=== PATIENT | male | born 1985 | race Caucasian/White ===

== ENCOUNTER 2023-06-03 13:04 | Outpatient (CLI) | payer BC, SELFPAY ==
--- NOTE | 2023-06-03 13:00 | MR_ITS ---
WS: [id number] MRI LUMBAR SPINE NONCONTRAST TECHNIQUE: Sagittal T1, T2 and STIR imaging. Axial T1 and T2 imaging. CLINICAL INFORMATION: M51.16 - Intervertebral disc disorders with radiculopathy... COMPARISON: None. FINDINGS: Mild lumbar curve. No acute compression. Disc protrusions L3-L4 L4-L5 and L5-S1. Prominent disc protr usions in the lower thoracic spine at T11-T12 and T12-L1 with mild central canal stenosis. Mild LEFT T11-T12 proximal foraminal narrowing. T12-L1: Central and RIGHT paracentral disc protrusion with narrowing of the RIGHT subarticular recess . Spinal canal and foramen are patent. L1-L2: Mild facet arthropathy. Spinal canal and foramen are patent. L2-L3: Mild facet arthropathy. Spinal canal and foramen are patent. L3-L4: Central and LEFT paracentral disc protrusion with mild central canal stenosis. Impingement of the traversing LEFT L4 nerve root in the subarticular recess. Mild facet arthropathy. Foramen are pat ent. L4-L5: Broad-based central disc protrusion with small annular fissure. Slight inferior extension of d isc material. Mild central canal stenosis. Impingement traversing L5 nerve roots LEFT greater than RI GHT. Mild facet arthropathy. Mild LEFT foraminal narrowing. L5-S1: Prominent RIGHT pericentral disc protrusion impinges the traversing RIGHT S1 nerve root in the subarticular recess. Mild central canal stenosis. Mild RIGHT proximal foraminal narrowing. Mild face t arthropathy. Small disc protrusions in the cervical spine on the control systems eng imaging at C4-C5 C5-C6 and C6-C7. Visualized pelvic bony structures: Normal. Paravertebral soft tissues: Normal. IMPRESSION: 1. Mild central canal stenosis L3-L4 L4-L5 and L5-S1. 2. Central and LEFT paracentral protrusion L3-4 impinges the LEFT subarticular recess and traversing LEFT L4 nerve root. 3. Broad-based central protrusion L4-5 with an annular tear impinges the traversing L5 nerve roots i n the subarticular recess. 4. Prominent RIGHT paracentral protrusion L5-S1 impinges the traversing RIGHT S1 nerve root. 5. RIGHT paracentral protrusion T12-L1 with narrowing of the RIGHT subarticular recess. 6. LEFT paracentral protrusion T11-T12 only included on the sagittal imaging with mild proximal fora delmy narrowing. 7. Mild LEFT L4-5 foraminal narrowing.
== END 2023-06-03 13:05 | disposition home or self-care (01) ==
LOC: RAD 13:04
PROVIDERS: PCP Family Medicine; Visit Provider Nurse Practitioner Family
DX: M51.16 Intervertebral disc disorders with radiculopathy, lumbar region (principal); M51.17 Intervertebral disc disorders with radiculopathy, lumbosacral region; M51.15 Intervertebral disc disorders with radiculopathy, thoracolumbar region; R20.0 Anesthesia of skin
CPT/HCPCS: 72148

== ENCOUNTER → 2023-08-27 16:22 | Outpatient (BNVA) | payer BC, SELFPAY | PROVIDERS: PCP Family Medicine; Visit Provider Orthopaedic Surgery | DX: M51.16 Intervertebral disc disorders with radiculopathy, lumbar region (principal); R20.0 Anesthesia of skin | CPT/HCPCS: 72100 ==